=== PATIENT | female | born 1975 | race African-American/Black ===

== ENCOUNTER 2016-09-25 14:55 | Emergency (ER) | payer OTHER ==
[~2016-09-25] VITALS: Ht 162.6 cm; Wt 81.6 kg
[~2016-09-25 14:55] MED LIST: ALBUTEROL17 GM INH; ANTIVERT PO; NAPROSYN250 M1 PO; NAPROXEN PO; ORUDIS75 M1 PO; PHENERGAN PO
== END 2016-09-25 15:55 | disposition home or self-care (01) ==
LOC: CFTX 14:55 → CED 14:55 → CFTX 15:50
DX: M79.671 Pain in right foot (principal); I10 Essential (primary) hypertension
CPT/HCPCS: 99283